=== PATIENT | female | born 1980 | race Hispanic/Latino ===

== ENCOUNTER 2021-10-02 12:55 | Observation (INO) | payer SELFPAY ==
[2021-10-02 16:28] VITALS: BMI 32.1
[2021-10-02] MEDS ORDERED: Ondansetron ODT 4 MG TAB PO PRN (16:45)
[2021-10-02] MEDS: Acetaminophen 325 MG TAB PO PRN ×2 (17:10→20:51)
[2021-10-02 17:58] LABS: Troponin I 0.014 ng/mL (< 0.028)
[2021-10-02 20:17] LABS: Troponin I Less than 0.010 ng/mL (< 0.028)
[2021-10-02] MEDS ORDERED: Atorvastatin Calcium 40 MG TAB PO SCH (21:00)
[2021-10-03 05:20] LABS: Anion Gap 11 mmol/L (10-20); BUN (Urea Nitrogen) 12 mg/dL (7.0-18.7); Calc. Creatinine Clearance 127 mL/min (70-130); Calcium 8.8 mg/dL (7.8-10.44); Carbon Dioxide 28 mmol/L (22-29); Cardiac Risk 5.1 (Less than 4.5); Chloride 104 mmol/L (98-107); Cholesterol 221 mg/dl (< 200 Desired); Glucose 106 mg/dL (70-105); HDL Cholesterol 43 mg/dL (>60 Neg Risk); LDL Cholesterol, Calculated 125 mg/dL; Potassium 3.7 mmol/L (3.5-5.1); Sodium 139 mmol/L (136-145); Triglycerides 264 mg/dL (Less than 150)
[2021-10-03] MEDS ORDERED: Levothyroxine Sodium 50 MCG TAB PO SCH (06:00)
[2021-10-03 08:47] VITALS: TEMP 97.5
[2021-10-03] MEDS ORDERED: Aspirin Chewable 81 MG TAB PO SCH (09:00)
[2021-10-03] MEDS ORDERED: Regadenoson 0.4 MG/5 ML SYRINGE ONE (09:21)
[2021-10-03 12:02] VITALS: BP 129/75
== END 2021-10-03 16:25 | disposition home or self-care (01) ==
LOC: 2SE 12:55
PROVIDERS: ADMIT Family Medicine; ATTEND Internal Medicine
DX: R07.89 Other chest pain (principal); E78.5 Hyperlipidemia, unspecified; E03.9 Hypothyroidism, unspecified; Z63.8 Other specified problems related to primary support group
CPT/HCPCS: 36415; 78452; 80048; 80061; 83735; 84443; 93017; A9500; G0378; J2785